=== PATIENT | male | born 1985 | race Caucasian/White ===

== ENCOUNTER 2016-10-10 22:21 | Emergency (ER) | payer OTHER ==
[2016-10-10] MEDS ORDERED: DIPHTH,PERTUSS(ACELL),TET VAC 0.5 ML VIAL IM V ONE (23:46)
--- NOTE | 2016-10-11 08:12 | RAD ---
Exam: Three-view right finger COMPARISON: None INDICATION: Right index finger smashed in door. FINDINGS: PA, lateral and oblique views of the right index finger were obtained. Soft tissue irregularity is noted along the volar aspect of the distal finger. There is no radiopaque foreign body. Alignment is normal. No fracture is identified. IMPRESSION: No acute osseous abnormality in the right index finger.
== END 2016-10-11 01:54 | disposition home or self-care (01) ==
LOC: ED 22:21
DX: S61.210A Laceration without foreign body of right index finger without damage to nail, initial encounter (principal); Z23 Encounter for immunization; W23.0XXA Caught, crushed, jammed, or pinched between moving objects, initial encounter; Y92.9 Unspecified place or not applicable